=== PATIENT | female | born 1930 | race Caucasian/White ===

== ENCOUNTER 2016-08-28 04:16 | Inpatient (IN) | payer MEDICARE, MEDICAID ==
[~2016-08-28 04:16] MED LIST: ABILIFY2 M1 PO; AMITRIPTYLINE H10 MG PO; ASPIR 8181 MG PO; AUGMENTIN 500-1 EAC2 PO; BENADRYL ITCH28.3 G1 TP; BENGAY113 G1 TP; CELEBREX200 MG PO; CEPACOL SORE T1 EAC2 MM; COREG3.125 MG PO; CYCLOBENZAPRINE10 M1 PO; CYMBALTA60 MG PO; DULCOLAX10 MG RC; DULCOLAX10 MG/SUPP PR; DUONEB 2.5-0.5MG3 M1 AERO NEB; DURAGESIC1 PATCH . TOP; DURAGESIC1 PATCH .7 TOP; DYAZIDE 37.5/251 CAP PO; ECONAZOLE NITRA15 GM TP; FENTANYL1 EAC3 TD; FEOSOL325 MG PO; FLEET ENEMA PR; GUAIFENESIN SYRU5 ML PO; HYDROCODON-ACE1 EA16 PO; IPRAT-ALBUT 0.5-3 ML INH; KAYEXALATE15 GM/601 PO; LASIX20 MG PO; LEVAQUIN500 MG PO; LEVOTHYROXINE100 MCG PO; LIDODERM1 EACH TP; LIDODERM30 EA TP; LIPITOR40 M1 PO; LIPITOR40 MG PO; LISINOPRIL2.5 MG PO; MICROZIDE12.5 M1 PO; MILK OF MAGNESIA PO; MIRALAX17 G1 PO; MYCOSTATIN100 K U/ML PO; NEURONTIN300 MG PO; NITROSTAT0.4 MG SL; NORCO 5/325 TAB1 TAB PO; NORCO 7.5-3251 EACH PO; NORVASC2.5 M1 PO; NYSTATIN TOP; NYSTATIN10 GM PO; OCEAN104 ML; OXYBUTYNIN CHLOR5 M2 PO; OXYGEN; PREDNISONE10 M1 PO; PRILOSEC20 MG PO; REQUIP1 M1 PO; REQUIP1 MG PO; SENOKOT8.6 MG PO; TAMIFLU75 MG/CAP PO; TRIAMCINOLONE A15 G3 TP; TRIPLE ANTIBIOTIC TOP; TUMS300 M1 PO; TUSSIN DM CLEA118 M1 PO; TYLENOL325 M1 PO; ULTRAM50 M1 PO; ULTRAM50 MG PO; ZITHROMAX250 M1 PO; [UNRECOGNIZED DRUG - OTHER] PO; [UNRECOGNIZED DRUG - SUPPLY]
[2016-08-28] MEDS ORDERED: AMBIEN5 M1 PO (04:28)
[2016-08-28] MEDS ORDERED: ABILIFY2 M1 PO (04:28)
[2016-08-28] MEDS ORDERED: COREG3.125 M1 PO (04:29)
[2016-08-28] MEDS ORDERED: CYMBALTA60 M1 PO (04:29)
[2016-08-28] MEDS ORDERED: DULCOLAX10 MG PR (04:30)
[2016-08-28] MEDS ORDERED: IPRAT-ALBUT 0.5-3 ML AERO NEB (04:32)
[2016-08-28] MEDS ORDERED: DURAGESIC1 EAC2 TOP (04:32)
[2016-08-28] MEDS ORDERED: FEOSOL325 M1 PO (04:33)
[2016-08-28] MEDS ORDERED: FLEET ENEMA133 ML PR (04:33)
[2016-08-28] MEDS ORDERED: COUGH SYRU100 MG/51 PO (04:35)
[2016-08-28] MEDS ORDERED: HYDROCHLOROTH12.5 M2 PO (04:36)
[2016-08-28] MEDS ORDERED: COUGHTAB200 M1 PO (04:36)
[2016-08-28] MEDS ORDERED: MELATONIN3 M4 PO (04:37)
[2016-08-28] MEDS ORDERED: LYRICA50 MG/CAP PO (04:37)
[2016-08-28] MEDS ORDERED: LIPITOR40 M1 PO (04:37)
[2016-08-28] MEDS ORDERED: MILK OF MAGNESIA PO (04:38)
[2016-08-28] MEDS ORDERED: NITROSTAT0.4 M1 PO (04:38)
[2016-08-28] MEDS ORDERED: NORCO 7.5-3251 EACH PO (04:39)
[2016-08-28] MEDS ORDERED: NORVASC2.5 M1 PO (04:40)
[2016-08-28] MEDS ORDERED: OMEPRAZOLE20 M4 PO (04:40)
[2016-08-28] MEDS ORDERED: ULTRAM50 M1 PO (04:41)
[2016-08-28] MEDS ORDERED: SYNTHROID100 MC1 PO (04:41)
[2016-08-28] MEDS ORDERED: SENOKOT8.6 M1 PO (04:41)
[2016-08-28] MEDS ORDERED: TYLENOL325 M2 PO (04:42)
[2016-08-28] MEDS ORDERED: HYDROCODON-ACE1 EA16 PO (04:52)
[2016-08-28 05:02] LABS: BASO % 0.3 % (0-2); EOS % 3.8 % (0-7); EOSINOPHIL ABSOLUTE COUNT 0.3 tho/cmm (0.0-0.7); HCT-HEMATOCRIT 39.6 % (34.0-49.0); HGB-HEMOGLOBIN 12.2 gm/dl (12.0-15.5); IMMATURE GRANULOCYTES ABSOLUTE 0.01 tho/cmm (0-0.03); IMMATURE GRANULOCYTES PERCENT 0.1 % (0-0.3); LYMPH % 17.1 % (20-45); LYMPH ABSOLUTE COUNT 1.2 tho/cmm (0.8-4.5); MCH (MEAN CORPUSCULAR HGB) 31.2 pg (28.0-32.0); MCHC MEAN CORPUSCULAR HGB CONC 30.8 % (32.0-36.0); MCV (MEAN CELL VOLUME) 101.3 fl (82.0-96.0); MEAN PLATELET VOLUME 9.4 cmc (9.4-12.4); MONO % 7.8 % (0-12); MONOCYTE ABSOLUTE COUNT 0.5 tho/cmm (0.0-1.2); NEUTROPHIL ABSOLUTE COUNT 4.9 tho/cmm (1.6-8.0); NEUTROPHIL-AUTOMATED 4.9 tho/cmm (1.6-8.0); NEUTROPHILS % 70.9 % (40-80); PLATELET COUNT 181 tho/cmm (150-450); RED BLOOD COUNT 3.91 mil/cmm (4.00-5.20); RED CELL DISTRIBUTION WIDTH 12.3 % (12.4-16.4); WHITE BLOOD COUNT 6.9 tho/cmm (4.0-10.0)
[2016-08-28 05:11] LABS: ABG CO2 ARTERIAL 33 mmol/L (21-27); ARTERIAL BLD GAS O2 SATURATION 95 % (95-98); ARTERIAL BLOOD GAS PCO2 63 mmHg (32-45); ARTERIAL PO2 79 mmHg (70-100); BICARBONATE 31 mmol/L (21-28); BLOOD GAS BASE EXCESS 4 mM/L (-/+3); PH 7.31 Units (7.35-7.45)
[2016-08-28 05:16] LABS: ANION GAP 10 mmol/L (0-20); BLOOD UREA NITROGEN 19 mg/dl (6-24); CALCIUM 8.5 mg/dl (8.5-10.5); CARBON DIOXIDE-VENOUS 32 mmol/L (22-32); CHLORIDE 105 mmol/l (96-110); CREATININE 0.94 mg/dl (0.50-1.10); GLUCOSE 97 mg/dL (70-110); POTASSIUM 3.7 mmol/L (3.7-5.1); SODIUM 143 mmol/L (135-145); eGFR VALUE FOR BLACK 64 mL/Min
[2016-08-28] MEDS ORDERED: VOLTAREN100 G1 TP (10:57)
[2016-08-28] MEDS ORDERED: [UNRECOGNIZED DRUG - SUPPLY] TP (10:57)
[2016-08-28 15:42] LABS: ABG CO2 ARTERIAL 33 mmol/L (21-27); ARTERIAL BLD GAS O2 SATURATION 94 % (95-98); ARTERIAL BLOOD GAS PCO2 56 mmHg (32-45); ARTERIAL PO2 71 mmHg (70-100); BICARBONATE 31 mmol/L (21-28); BLOOD GAS BASE EXCESS 5 mM/L (-/+3); PH 7.37 Units (7.35-7.45)
[2016-08-28 17:50] LABS: URINE BILIRUBIN NEGATIVE (NEG); URINE BLOOD MODERATE (NEG); URINE GLUCOSE (UA) NEGATIVE (NEG); URINE KETONE NEGATIVE (NEG); URINE LEUKOCYTE ESTERASE NEGATIVE (NEG); URINE NITRITE NEGATIVE (NEG); URINE PH 6.5 (5.0-8.0); URINE PROTEIN SMALL (NEG)
[2016-08-28 17:53] LABS: URINE APPEARANCE CLEAR; URINE COLOR YELLOW
[2016-08-28 18:04] LABS: URINE EPITHELIAL CELLS 0 /[HPF] (0-10); URINE RBC 0-1 /[HPF] (0-5); URINE WBC 0 /[HPF] (0-5)
[2016-08-29 04:43] LABS: ABG CO2 ARTERIAL 30 mmol/L (21-27); ARTERIAL BLD GAS O2 SATURATION 95 % (95-98); ARTERIAL BLOOD GAS PCO2 47 mmHg (32-45); ARTERIAL PO2 74 mmHg (70-100); BICARBONATE 28 mmol/L (21-28); BLOOD GAS BASE EXCESS 3 mM/L (-/+3)
[2016-08-29 06:14] LABS: HCT-HEMATOCRIT 38.1 % (34.0-49.0); LYMPH % 11.1 % (20-45); LYMPH ABSOLUTE COUNT 0.7 tho/cmm (0.8-4.5); MCH (MEAN CORPUSCULAR HGB) 30.9 pg (28.0-32.0); MCHC MEAN CORPUSCULAR HGB CONC 31.5 % (32.0-36.0); MCV (MEAN CELL VOLUME) 98.2 fl (82.0-96.0); MEAN PLATELET VOLUME 9.4 cmc (9.4-12.4); MONO % 3.5 % (0-12); MONOCYTE ABSOLUTE COUNT 0.2 tho/cmm (0.0-1.2); NEUTROPHIL ABSOLUTE COUNT 5.4 tho/cmm (1.6-8.0); NEUTROPHIL-AUTOMATED 5.4 tho/cmm (1.6-8.0); NEUTROPHILS % 85.4 % (40-80); PLATELET COUNT 179 tho/cmm (150-450); RED BLOOD COUNT 3.88 mil/cmm (4.00-5.20); RED CELL DISTRIBUTION WIDTH 12.2 % (12.4-16.4); WHITE BLOOD COUNT 6.3 tho/cmm (4.0-10.0)
[2016-08-29 06:25] LABS: BLOOD UREA NITROGEN 17 mg/dl (6-24); CALCIUM 8.7 mg/dl (8.5-10.5); CARBON DIOXIDE-VENOUS 29 mmol/L (22-32); CHLORIDE 105 mmol/l (96-110); CREATININE 0.82 mg/dl (0.50-1.10); SODIUM 141 mmol/L (135-145); eGFR VALUE FOR BLACK 76 mL/Min
[2016-08-29 06:29] LABS: ANION GAP 11 mmol/L (0-20); GLUCOSE 149 mg/dL (70-110)
[2016-08-29 20:08] LABS: BLOOD UREA NITROGEN 16 mg/dl (6-24); CALCIUM 9.3 mg/dl (8.5-10.5); CARBON DIOXIDE-VENOUS 28 mmol/L (22-32); CHLORIDE 105 mmol/l (96-110); CREATININE 0.97 mg/dl (0.50-1.10); GLUCOSE 146 mg/dL (70-110); PHOSPHOROUS 2.4 mg/dl (2.5-4.9); SODIUM 142 mmol/L (135-145); eGFR VALUE FOR BLACK 62 mL/Min
[2016-08-29 20:09] LABS: ANION GAP 13 mmol/L (0-20); MAGNESIUM 1.4 mg/dl (1.8-2.6); POTASSIUM 3.8 mmol/L (3.7-5.1)
[2016-08-30 05:17] LABS: TSH-THYROID STIMULATING HORM. 1.63 uIU/ml (0.40-3.80)
[2016-09-01 04:47] LABS: EOS % 0.3 % (0-7); HCT-HEMATOCRIT 44.7 % (34.0-49.0); HGB-HEMOGLOBIN 14.5 gm/dl (12.0-15.5); IMMATURE GRANULOCYTES ABSOLUTE 0.06 tho/cmm (0-0.03); IMMATURE GRANULOCYTES PERCENT 0.5 % (0-0.3); LYMPH % 17.2 % (20-45); MCH (MEAN CORPUSCULAR HGB) 31.3 pg (28.0-32.0); MCHC MEAN CORPUSCULAR HGB CONC 32.4 % (32.0-36.0); MCV (MEAN CELL VOLUME) 96.3 fl (82.0-96.0); MEAN PLATELET VOLUME 9.3 cmc (9.4-12.4); MONO % 8.9 % (0-12); NEUTROPHIL ABSOLUTE COUNT 8.6 tho/cmm (1.6-8.0); NEUTROPHIL-AUTOMATED 8.6 tho/cmm (1.6-8.0); NEUTROPHILS % 73.1 % (40-80); PLATELET COUNT 224 tho/cmm (150-450); RED BLOOD COUNT 4.64 mil/cmm (4.00-5.20); RED CELL DISTRIBUTION WIDTH 12.2 % (12.4-16.4)
[2016-09-01 05:09] LABS: WHITE BLOOD COUNT 11.7 tho/cmm (4.0-10.0)
[2016-09-01 05:36] LABS: ANION GAP 13 mmol/L (0-20); BLOOD UREA NITROGEN 20 mg/dl (6-24); CALCIUM 8.7 mg/dl (8.5-10.5); CARBON DIOXIDE-VENOUS 31 mmol/L (22-32); CHLORIDE 99 mmol/l (96-110); GLUCOSE 86 mg/dL (70-110); SODIUM 140 mmol/L (135-145); eGFR VALUE FOR BLACK 59 mL/Min
== END 2016-09-01 13:10 | DRG 190 ==
LOC: EDMED 04:16 → EMR2 06:41 → CCU 07:33 → PCUA 08-29 16:45
PROVIDERS: Emergency Medicine; Family Medicine; Hospitalist; Nurse Practitioner Family; Registered Nurse; ADMIT Internal Medicine
DX: J44.1 Chronic obstructive pulmonary disease with (acute) exacerbation (principal); J96.21 Acute and chronic respiratory failure with hypoxia; G93.40 Encephalopathy, unspecified; J18.9 Pneumonia, unspecified organism; M06.9 Rheumatoid arthritis, unspecified; I48.91 Unspecified atrial fibrillation; R13.10 Dysphagia, unspecified; J96.22 Acute and chronic respiratory failure with hypercapnia; Z68.43 Body mass index [BMI] 50.0-59.9, adult; J98.11 Atelectasis; E66.01 Morbid (severe) obesity due to excess calories; E03.9 Hypothyroidism, unspecified; I10 Essential (primary) hypertension; Z66 Do not resuscitate; Z74.01 Bed confinement status; G89.4 Chronic pain syndrome; E78.5 Hyperlipidemia, unspecified; G25.81 Restless legs syndrome; R53.81 Other malaise; Z88.2 Allergy status to sulfonamides; Z90.49 Acquired absence of other specified parts of digestive tract; Z90.710 Acquired absence of both cervix and uterus; Z96.611 Presence of right artificial shoulder joint; J44.0 Chronic obstructive pulmonary disease with (acute) lower respiratory infection
CPT/HCPCS: G8996-GN-CK; G8997-GN-CK; J1650; J1956; J2930; J3475; J7030; J7512

== ENCOUNTER 2016-09-15 20:12 | Inpatient (IN) | payer MEDICARE, MEDICAID ==
[~2016-09-15 20:12] MED LIST changes: +AMBIEN5 M1 PO; +COREG3.125 M1 PO; +COUGH SYRU100 MG/51 PO; +COUGHTAB200 M1 PO; +CYMBALTA60 M1 PO; +DULCOLAX10 MG PR; +DURAGESIC1 EAC2 TOP; +FEOSOL325 M1 PO; +FLEET ENEMA133 ML PR; +HYDROCHLOROTH12.5 M2 PO; +IPRAT-ALBUT 0.5-3 ML AERO NEB; +LYRICA50 MG/CAP PO; +MELATONIN3 M4 PO; +NITROSTAT0.4 M1 PO; +OMEPRAZOLE20 M4 PO; +SENOKOT8.6 M1 PO; +SYNTHROID100 MC1 PO; +TYLENOL325 M2 PO; +VOLTAREN100 G1 TP; +[UNRECOGNIZED DRUG - SUPPLY] TP
[2016-09-15] MEDS ORDERED: LANOXIN125 MC3 PO (20:53)
[2016-09-15] MEDS ORDERED: BISOPROLOL FUMAR5 M1 PO (20:53)
[2016-09-15] MEDS ORDERED: ELIQUIS5 M1 PO (20:54)
[2016-09-15 21:11] LABS: BASO % 0.3 % (0-2); EOS % 2.9 % (0-7); EOSINOPHIL ABSOLUTE COUNT 0.2 tho/cmm (0.0-0.7); HCT-HEMATOCRIT 41.6 % (34.0-49.0); HGB-HEMOGLOBIN 13.2 gm/dl (12.0-15.5); IMMATURE GRANULOCYTES ABSOLUTE 0.02 tho/cmm (0-0.03); IMMATURE GRANULOCYTES PERCENT 0.3 % (0-0.3); LYMPH ABSOLUTE COUNT 1.4 tho/cmm (0.8-4.5); MCH (MEAN CORPUSCULAR HGB) 31.4 pg (28.0-32.0); MCHC MEAN CORPUSCULAR HGB CONC 31.7 % (32.0-36.0); MEAN PLATELET VOLUME 10.2 cmc (9.4-12.4); MONO % 9.5 % (0-12); MONOCYTE ABSOLUTE COUNT 0.7 tho/cmm (0.0-1.2); NEUTROPHIL ABSOLUTE COUNT 5.3 tho/cmm (1.6-8.0); NEUTROPHIL-AUTOMATED 5.3 tho/cmm (1.6-8.0); PLATELET COUNT 146 tho/cmm (150-450); RED CELL DISTRIBUTION WIDTH 12.7 % (12.4-16.4); WHITE BLOOD COUNT 7.6 tho/cmm (4.0-10.0)
[2016-09-15 21:25] LABS: ALB/GLOB RATIO 0.8 (0.8-2.0); ALBUMIN 2.8 g/dl (3.5-5.0); ALKALINE PHOSPHATASE 166 U/L (33-138); ALT/SGPT 45 U/L (12-78); ANION GAP 13 mmol/L (0-20); AST/SGOT 79 U/L (10-40); BILIRUBIN,TOTAL 0.8 mg/dl (0-1.5); BLOOD UREA NITROGEN 33 mg/dl (6-24); CALCIUM 8.5 mg/dl (8.5-10.5); CARBON DIOXIDE-VENOUS 28 mmol/L (22-32); CHLORIDE 105 mmol/l (96-110); CREATININE 1.12 mg/dl (0.50-1.10); GLUCOSE 77 mg/dL (70-110); POTASSIUM 3.9 mmol/L (3.7-5.1); SODIUM 142 mmol/L (135-145); eGFR VALUE FOR BLACK 52 mL/Min
[2016-09-15 21:58] LABS: URINE APPEARANCE HAZY; URINE BILIRUBIN SMALL (NEG); URINE BLOOD SMALL (NEG); URINE COLOR YELLOW; URINE GLUCOSE (UA) NEGATIVE (NEG); URINE KETONE SMALL (NEG); URINE LEUKOCYTE ESTERASE POSITIVE (NEG); URINE NITRITE NEGATIVE (NEG); URINE PROTEIN SMALL (NEG); URINE SPECIFIC GRAVITY 1.015 (1.003-1.030)
[2016-09-15 22:27] LABS: URINE EPITHELIAL CELLS RARE /[HPF] (0-10); URINE RBC RARE /[HPF] (0-5); URINE WBC 0-1 /[HPF] (0-5)
[2016-09-15 22:39] LABS: ABG CO2 ARTERIAL 29 mmol/L (21-27); ARTERIAL BLD GAS O2 SATURATION 98 % (95-98); ARTERIAL BLOOD GAS PCO2 57 mmHg (32-45); ARTERIAL PO2 130 mmHg (70-100); BICARBONATE 27 mmol/L (21-28); BLOOD GAS BASE EXCESS 0 mM/L (-/+3)
[2016-09-16 01:00] LABS: ABG CO2 ARTERIAL 29 mmol/L (21-27); ARTERIAL BLD GAS O2 SATURATION 97 % (95-98); ARTERIAL BLOOD GAS PCO2 55 mmHg (32-45); BICARBONATE 27 mmol/L (21-28); BLOOD GAS BASE EXCESS 0 mM/L (-/+3); PH 7.31 Units (7.35-7.45)
[2016-09-16 01:01] LABS: ARTERIAL PO2 92 mmHg (70-100)
[2016-09-16 04:36] LABS: ABG CO2 ARTERIAL 28 mmol/L (21-27); ARTERIAL BLD GAS O2 SATURATION 96 % (95-98); ARTERIAL BLOOD GAS PCO2 54 mmHg (32-45); ARTERIAL PO2 92 mmHg (70-100); BICARBONATE 26 mmol/L (21-28); BLOOD GAS BASE EXCESS -1 mM/L (-/+3)
[2016-09-16 05:22] LABS: BASO % 0.1 % (0-2); EOS % 1.9 % (0-7); EOSINOPHIL ABSOLUTE COUNT 0.2 tho/cmm (0.0-0.7); HCT-HEMATOCRIT 42.7 % (34.0-49.0); HGB-HEMOGLOBIN 13.5 gm/dl (12.0-15.5); IMMATURE GRANULOCYTES ABSOLUTE 0.03 tho/cmm (0-0.03); IMMATURE GRANULOCYTES PERCENT 0.3 % (0-0.3); LYMPH % 12.5 % (20-45); LYMPH ABSOLUTE COUNT 1.2 tho/cmm (0.8-4.5); MCH (MEAN CORPUSCULAR HGB) 31.3 pg (28.0-32.0); MCHC MEAN CORPUSCULAR HGB CONC 31.6 % (32.0-36.0); MCV (MEAN CELL VOLUME) 98.8 fl (82.0-96.0); MEAN PLATELET VOLUME 10.3 cmc (9.4-12.4); MONO % 7.8 % (0-12); MONOCYTE ABSOLUTE COUNT 0.7 tho/cmm (0.0-1.2); NEUTROPHIL ABSOLUTE COUNT 7.3 tho/cmm (1.6-8.0); NEUTROPHIL-AUTOMATED 7.3 tho/cmm (1.6-8.0); NEUTROPHILS % 77.4 % (40-80); PLATELET COUNT 155 tho/cmm (150-450); RED BLOOD COUNT 4.32 mil/cmm (4.00-5.20); RED CELL DISTRIBUTION WIDTH 12.7 % (12.4-16.4); WHITE BLOOD COUNT 9.4 tho/cmm (4.0-10.0)
[2016-09-16 05:33] LABS: ANION GAP 16 mmol/L (0-20); BLOOD UREA NITROGEN 33 mg/dl (6-24); C-REACTIVE PROTEIN 4.3 mg/dl (0-0.9); CALCIUM 8.6 mg/dl (8.5-10.5); CARBON DIOXIDE-VENOUS 27 mmol/L (22-32); CHLORIDE 105 mmol/l (96-110); CREATININE 0.98 mg/dl (0.50-1.10); GLUCOSE 82 mg/dL (70-110); POTASSIUM 3.9 mmol/L (3.7-5.1); SODIUM 144 mmol/L (135-145); eGFR VALUE FOR BLACK 61 mL/Min
[2016-09-17 04:27] LABS: ABG CO2 ARTERIAL 28 mmol/L (21-27); ARTERIAL BLD GAS O2 SATURATION 95 % (95-98); ARTERIAL BLOOD GAS PCO2 46 mmHg (32-45); BICARBONATE 27 mmol/L (21-28); BLOOD GAS BASE EXCESS 2 mM/L (-/+3)
[2016-09-17 04:28] LABS: ARTERIAL PO2 75 mmHg (70-100); PH 7.39 Units (7.35-7.45)
[2016-09-18 17:22] LABS: BASO % 0.1 % (0-2); EOS % 0.1 % (0-7); HCT-HEMATOCRIT 38.7 % (34.0-49.0); HGB-HEMOGLOBIN 12.4 gm/dl (12.0-15.5); IMMATURE GRANULOCYTES ABSOLUTE 0.02 tho/cmm (0-0.03); IMMATURE GRANULOCYTES PERCENT 0.2 % (0-0.3); LYMPH % 9.1 % (20-45); LYMPH ABSOLUTE COUNT 1.1 tho/cmm (0.8-4.5); MCH (MEAN CORPUSCULAR HGB) 30.9 pg (28.0-32.0); MCV (MEAN CELL VOLUME) 96.5 fl (82.0-96.0); MEAN PLATELET VOLUME 9.8 cmc (9.4-12.4); MONO % 7.6 % (0-12); MONOCYTE ABSOLUTE COUNT 0.9 tho/cmm (0.0-1.2); NEUTROPHIL ABSOLUTE COUNT 10.2 tho/cmm (1.6-8.0); NEUTROPHIL-AUTOMATED 10.2 tho/cmm (1.6-8.0); NEUTROPHILS % 82.9 % (40-80); PLATELET COUNT 143 tho/cmm (150-450); RED BLOOD COUNT 4.01 mil/cmm (4.00-5.20); RED CELL DISTRIBUTION WIDTH 12.5 % (12.4-16.4); WHITE BLOOD COUNT 12.3 tho/cmm (4.0-10.0)
[2016-09-18 17:35] LABS: ANION GAP 12 mmol/L (0-20); BLOOD UREA NITROGEN 16 mg/dl (6-24); CALCIUM 7.7 mg/dl (8.5-10.5); CARBON DIOXIDE-VENOUS 30 mmol/L (22-32); CHLORIDE 105 mmol/l (96-110); CREATININE 0.72 mg/dl (0.50-1.10); GLUCOSE 113 mg/dL (70-110); POTASSIUM 3.4 mmol/L (3.7-5.1); SODIUM 144 mmol/L (135-145); eGFR VALUE FOR BLACK 89 mL/Min
[2016-09-18 18:00] LABS: PROCALCITONIN 0.07 ng/ml (0.05-0.09)
[2016-09-18 18:35] LABS: URINE BILIRUBIN NEGATIVE (NEG); URINE BLOOD LARGE (NEG); URINE GLUCOSE (UA) NEGATIVE (NEG); URINE KETONE SMALL (NEG); URINE LEUKOCYTE ESTERASE POSITIVE (NEG); URINE NITRITE NEGATIVE (NEG); URINE PROTEIN MODERATE (NEG)
[2016-09-18 18:36] LABS: URINE APPEARANCE CLOUDY; URINE COLOR DARK YELLOW
[2016-09-18 18:45] LABS: URINE AMORPHOUS 1+; URINE BACTERIA 2+; URINE EPITHELIAL CELLS RARE /[HPF] (0-10); URINE WBC 15-20 /[HPF] (0-5)
[2016-09-19 05:02] LABS: ANION GAP 11 mmol/L (0-20); BLOOD UREA NITROGEN 19 mg/dl (6-24); CALCIUM 7.4 mg/dl (8.5-10.5); CARBON DIOXIDE-VENOUS 30 mmol/L (22-32); CHLORIDE 103 mmol/l (96-110); CREATININE 0.86 mg/dl (0.50-1.10); GLUCOSE 88 mg/dL (70-110); POTASSIUM 3.1 mmol/L (3.7-5.1); SODIUM 141 mmol/L (135-145); eGFR VALUE FOR BLACK 71 mL/Min
[2016-09-19 05:10] LABS: BASO % 0.1 % (0-2); EOS % 0.7 % (0-7); EOSINOPHIL ABSOLUTE COUNT 0.1 tho/cmm (0.0-0.7); HCT-HEMATOCRIT 34.7 % (34.0-49.0); IMMATURE GRANULOCYTES ABSOLUTE 0.03 tho/cmm (0-0.03); IMMATURE GRANULOCYTES PERCENT 0.3 % (0-0.3); LYMPH % 12.5 % (20-45); LYMPH ABSOLUTE COUNT 1.1 tho/cmm (0.8-4.5); MCH (MEAN CORPUSCULAR HGB) 30.8 pg (28.0-32.0); MCHC MEAN CORPUSCULAR HGB CONC 31.7 % (32.0-36.0); MCV (MEAN CELL VOLUME) 97.2 fl (82.0-96.0); MONO % 8.8 % (0-12); MONOCYTE ABSOLUTE COUNT 0.8 tho/cmm (0.0-1.2); NEUTROPHIL ABSOLUTE COUNT 7.1 tho/cmm (1.6-8.0); NEUTROPHIL-AUTOMATED 7.1 tho/cmm (1.6-8.0); NEUTROPHILS % 77.6 % (40-80); PLATELET COUNT 126 tho/cmm (150-450); RED BLOOD COUNT 3.57 mil/cmm (4.00-5.20); RED CELL DISTRIBUTION WIDTH 12.8 % (12.4-16.4); WHITE BLOOD COUNT 9.1 tho/cmm (4.0-10.0)
[2016-09-20 02:30] LABS: ANION GAP 12 mmol/L (0-20); BLOOD UREA NITROGEN 19 mg/dl (6-24); CALCIUM 7.1 mg/dl (8.5-10.5); CARBON DIOXIDE-VENOUS 29 mmol/L (22-32); CHLORIDE 107 mmol/l (96-110); CREATININE 0.83 mg/dl (0.50-1.10); GLUCOSE 83 mg/dL (70-110); POTASSIUM 3.9 mmol/L (3.7-5.1); SODIUM 144 mmol/L (135-145); eGFR VALUE FOR BLACK 75 mL/Min
[2016-09-21 03:50] LABS: PLATELET COUNT 184 tho/cmm (150-450)
[2016-09-21] MEDS ORDERED: ELIQUIS5 M1 (10:18)
[2016-09-21] MEDS ORDERED: LIPITOR40 M1 PO (17:12)
[2016-09-21] MEDS ORDERED: NITROSTAT0.4 M1 SL (17:12)
[2016-09-21] MEDS ORDERED: DURAGESIC1 EAC3 TOP (17:14)
[2016-09-21] MEDS ORDERED: HYDROCODON-ACE1 EA16 PO (17:15)
[2016-09-21] MEDS ORDERED: DELTASONE20 MG PO (18:18)
== END 2016-09-21 15:45 | DRG 189 ==
LOC: EDMED 20:12 → EMR2 09-16 00:12 → CCU 09-16 01:10 → PCUA 09-16 17:42
PROVIDERS: Emergency Medicine; Family Medicine; Internal Medicine Pulmonary Disease; Physician Assistant Medical; Registered Nurse; ADMIT Hospitalist
PROC: 5A09357 Assistance with Respiratory Ventilation, Less than 24 Consecutive Hours, Continuous Positive Airway Pressure (ICD-10-PCS; principal; 2016-09-16)
PROC: 02HV33Z Insertion of Infusion Device into Superior Vena Cava, Percutaneous Approach (ICD-10-PCS; 2016-09-16)
PROC: 02HV33Z Insertion of Infusion Device into Superior Vena Cava, Percutaneous Approach (ICD-10-PCS; 2016-09-17)
DX: J96.22 Acute and chronic respiratory failure with hypercapnia (principal); I48.2 Chronic atrial fibrillation; E66.2 Morbid (severe) obesity with alveolar hypoventilation; R00.1 Bradycardia, unspecified; N39.0 Urinary tract infection, site not specified; G25.81 Restless legs syndrome; I10 Essential (primary) hypertension; Z68.41 Body mass index [BMI] 40.0-44.9, adult; J96.21 Acute and chronic respiratory failure with hypoxia; Z79.01 Long term (current) use of anticoagulants; M06.9 Rheumatoid arthritis, unspecified; G89.4 Chronic pain syndrome; Z79.891 Long term (current) use of opiate analgesic; B96.4 Proteus (mirabilis) (morganii) as the cause of diseases classified elsewhere; Z91.19 Patient's noncompliance with other medical treatment and regimen; J44.9 Chronic obstructive pulmonary disease, unspecified; E03.9 Hypothyroidism, unspecified; E78.5 Hyperlipidemia, unspecified; K21.9 Gastro-esophageal reflux disease without esophagitis; Z88.2 Allergy status to sulfonamides; Z66 Do not resuscitate; R79.89 Other specified abnormal findings of blood chemistry; F32.9 Major depressive disorder, single episode, unspecified; T46.0X5A Adverse effect of cardiac-stimulant glycosides and drugs of similar action, initial encounter; R41.0 Disorientation, unspecified; T40.605A Adverse effect of unspecified narcotics, initial encounter
CPT/HCPCS: C1751; C1769; J0461; J0696; J1265; J7030; J7050; J7512; P9612; Q9967

== ENCOUNTER 2016-10-01 23:06 | Inpatient (IN) | payer MEDICARE, MEDICAID ==
[~2016-10-01 23:06] MED LIST changes: +BISOPROLOL FUMAR5 M1 PO; +DELTASONE20 MG PO; +DURAGESIC1 EAC3 TOP; +ELIQUIS5 M1; +ELIQUIS5 M1 PO; +LANOXIN125 MC3 PO; +NITROSTAT0.4 M1 SL
[2016-10-01 23:59] LABS: ABG CO2 ARTERIAL 30 mmol/L (21-27); ARTERIAL BLD GAS O2 SATURATION 96 % (95-98); ARTERIAL BLOOD GAS PCO2 51 mmHg (32-45); ARTERIAL PO2 83 mmHg (70-100); BICARBONATE 29 mmol/L (21-28); BLOOD GAS BASE EXCESS 3 mM/L (-/+3); PH 7.37 Units (7.35-7.45)
[2016-10-02] MEDS ORDERED: METOPROLOL TART25 M1 PO (00:19)
[2016-10-02] MEDS ORDERED: ZINC OXIDE30 G1 TOP (00:19)
[2016-10-02 00:49] LABS: BASO % 0.4 % (0-2); EOS % 1.1 % (0-7); EOSINOPHIL ABSOLUTE COUNT 0.1 tho/cmm (0.0-0.7); HCT-HEMATOCRIT 36.2 % (34.0-49.0); HGB-HEMOGLOBIN 11.2 gm/dl (12.0-15.5); IMMATURE GRANULOCYTES PERCENT 1.2 % (0-0.3); LYMPH ABSOLUTE COUNT 1.2 tho/cmm (0.8-4.5); MCH (MEAN CORPUSCULAR HGB) 30.8 pg (28.0-32.0); MCHC MEAN CORPUSCULAR HGB CONC 30.9 % (32.0-36.0); MCV (MEAN CELL VOLUME) 99.5 fl (82.0-96.0); MEAN PLATELET VOLUME 9.3 cmc (9.4-12.4); MONO % 12.1 % (0-12); NEUTROPHIL ABSOLUTE COUNT 5.8 tho/cmm (1.6-8.0); NEUTROPHIL-AUTOMATED 5.8 tho/cmm (1.6-8.0); NEUTROPHILS % 71.2 % (40-80); PLATELET COUNT 261 tho/cmm (150-450); RED BLOOD COUNT 3.64 mil/cmm (4.00-5.20); RED CELL DISTRIBUTION WIDTH 13.1 % (12.4-16.4); WHITE BLOOD COUNT 8.2 tho/cmm (4.0-10.0)
[2016-10-02 00:52] LABS: URINE BILIRUBIN SMALL (NEG); URINE BLOOD SMALL (NEG); URINE GLUCOSE (UA) NEGATIVE (NEG); URINE KETONE NEGATIVE (NEG); URINE LEUKOCYTE ESTERASE POSITIVE (NEG); URINE NITRITE NEGATIVE (NEG); URINE PROTEIN SMALL (NEG)
[2016-10-02 00:52] LABS: INR 1.7 INR (0.9-1.1); PROTHROMBIN TIME 20.3 SECONDS (9.0-13.6)
[2016-10-02 00:59] LABS: URINE APPEARANCE HAZY; URINE COLOR YELLOW
[2016-10-02 01:00] LABS: URINE BACTERIA 2+; URINE EPITHELIAL CELLS 0 /[HPF] (0-10); URINE RBC RARE /[HPF] (0-5)
[2016-10-02 01:10] LABS: ALB/GLOB RATIO 0.7 (0.8-2.0); ALBUMIN 2.6 g/dl (3.5-5.0); ALKALINE PHOSPHATASE 95 U/L (33-138); ALT/SGPT 13 U/L (12-78); ANION GAP 13 mmol/L (0-20); AST/SGOT 22 U/L (10-40); BILIRUBIN,TOTAL 0.5 mg/dl (0-1.5); BLOOD UREA NITROGEN 12 mg/dl (6-24); CALCIUM 6.7 mg/dl (8.5-10.5); CARBON DIOXIDE-VENOUS 28 mmol/L (22-32); CHLORIDE 105 mmol/l (96-110); CREATININE 0.84 mg/dl (0.50-1.10); GLUCOSE 91 mg/dL (70-110); MAGNESIUM 0.8 mg/dl (1.8-2.6); SODIUM 142 mmol/L (135-145); eGFR VALUE FOR BLACK 73 mL/Min
[2016-10-02 01:15] LABS: TSH-THYROID STIMULATING HORM. 7.08 uIU/ml (0.40-3.80)
[2016-10-02 01:35] LABS: PROCALCITONIN 0.06 ng/ml (0.05-0.09)
[2016-10-02 04:51] LABS: ABG CO2 ARTERIAL 30 mmol/L (21-27); ARTERIAL BLD GAS O2 SATURATION 98 % (95-98); ARTERIAL BLOOD GAS PCO2 51 mmHg (32-45); ARTERIAL PO2 104 mmHg (70-100); BICARBONATE 29 mmol/L (21-28); BLOOD GAS BASE EXCESS 3 mM/L (-/+3); PH 7.36 Units (7.35-7.45)
[2016-10-03 04:47] LABS: ABG CO2 ARTERIAL 30 mmol/L (21-27); ARTERIAL BLD GAS O2 SATURATION 97 % (95-98); ARTERIAL BLOOD GAS PCO2 49 mmHg (32-45); BICARBONATE 29 mmol/L (21-28); BLOOD GAS BASE EXCESS 3 mM/L (-/+3); PH 7.38 Units (7.35-7.45)
[2016-10-03 04:48] LABS: ARTERIAL PO2 86 mmHg (70-100)
[2016-10-03 06:33] LABS: BASO % 0.3 % (0-2); EOS % 1.3 % (0-7); EOSINOPHIL ABSOLUTE COUNT 0.1 tho/cmm (0.0-0.7); HCT-HEMATOCRIT 33.5 % (34.0-49.0); HGB-HEMOGLOBIN 10.2 gm/dl (12.0-15.5); IMMATURE GRANULOCYTES ABSOLUTE 0.05 tho/cmm (0-0.03); IMMATURE GRANULOCYTES PERCENT 0.7 % (0-0.3); LYMPH % 11.1 % (20-45); LYMPH ABSOLUTE COUNT 0.8 tho/cmm (0.8-4.5); MCH (MEAN CORPUSCULAR HGB) 30.4 pg (28.0-32.0); MCHC MEAN CORPUSCULAR HGB CONC 30.4 % (32.0-36.0); MCV (MEAN CELL VOLUME) 99.7 fl (82.0-96.0); MEAN PLATELET VOLUME 9.3 cmc (9.4-12.4); MONO % 13.7 % (0-12); NEUTROPHIL ABSOLUTE COUNT 5.1 tho/cmm (1.6-8.0); NEUTROPHIL-AUTOMATED 5.1 tho/cmm (1.6-8.0); NEUTROPHILS % 72.9 % (40-80); PLATELET COUNT 196 tho/cmm (150-450); RED BLOOD COUNT 3.36 mil/cmm (4.00-5.20); RED CELL DISTRIBUTION WIDTH 13.1 % (12.4-16.4)
[2016-10-03 07:17] LABS: ANION GAP 13 mmol/L (0-20); BLOOD UREA NITROGEN 10 mg/dl (6-24); C-REACTIVE PROTEIN 7.9 mg/dl (0-0.9); CARBON DIOXIDE-VENOUS 28 mmol/L (22-32); CHLORIDE 105 mmol/l (96-110); CREATININE 0.77 mg/dl (0.50-1.10); GLUCOSE 78 mg/dL (70-110); MAGNESIUM 1.2 mg/dl (1.8-2.6); POTASSIUM 3.9 mmol/L (3.7-5.1); SODIUM 142 mmol/L (135-145); eGFR VALUE FOR BLACK 82 mL/Min
[2016-10-04 05:18] LABS: BASO % 0.3 % (0-2); EOS % 1.2 % (0-7); EOSINOPHIL ABSOLUTE COUNT 0.1 tho/cmm (0.0-0.7); HCT-HEMATOCRIT 31.4 % (34.0-49.0); HGB-HEMOGLOBIN 9.6 gm/dl (12.0-15.5); IMMATURE GRANULOCYTES ABSOLUTE 0.07 tho/cmm (0-0.03); LYMPH % 13.7 % (20-45); MCH (MEAN CORPUSCULAR HGB) 30.2 pg (28.0-32.0); MCHC MEAN CORPUSCULAR HGB CONC 30.6 % (32.0-36.0); MCV (MEAN CELL VOLUME) 98.7 fl (82.0-96.0); MEAN PLATELET VOLUME 9.3 cmc (9.4-12.4); MONO % 12.5 % (0-12); MONOCYTE ABSOLUTE COUNT 0.9 tho/cmm (0.0-1.2); NEUTROPHIL ABSOLUTE COUNT 5.2 tho/cmm (1.6-8.0); NEUTROPHIL-AUTOMATED 5.2 tho/cmm (1.6-8.0); NEUTROPHILS % 71.3 % (40-80); PLATELET COUNT 182 tho/cmm (150-450); RED BLOOD COUNT 3.18 mil/cmm (4.00-5.20); WHITE BLOOD COUNT 7.3 tho/cmm (4.0-10.0)
[2016-10-04 05:33] LABS: ALB/GLOB RATIO 0.6 (0.8-2.0); ALKALINE PHOSPHATASE 73 U/L (33-138); ALT/SGPT 10 U/L (12-78); ANION GAP 11 mmol/L (0-20); AST/SGOT 17 U/L (10-40); BILIRUBIN,TOTAL 0.8 mg/dl (0-1.5); BLOOD UREA NITROGEN 9 mg/dl (6-24); CALCIUM 6.9 mg/dl (8.5-10.5); CARBON DIOXIDE-VENOUS 29 mmol/L (22-32); CHLORIDE 103 mmol/l (96-110); CREATININE 0.73 mg/dl (0.50-1.10); GLUCOSE 94 mg/dL (70-110); POTASSIUM 3.2 mmol/L (3.7-5.1); SODIUM 140 mmol/L (135-145); eGFR VALUE FOR BLACK 87 mL/Min
[2016-10-05 06:08] LABS: ANION GAP 12 mmol/L (0-20); BLOOD UREA NITROGEN 7 mg/dl (6-24); CALCIUM 6.9 mg/dl (8.5-10.5); CARBON DIOXIDE-VENOUS 27 mmol/L (22-32); CHLORIDE 106 mmol/l (96-110); CREATININE 0.58 mg/dl (0.50-1.10); GLUCOSE 83 mg/dL (70-110); SODIUM 141 mmol/L (135-145); eGFR VALUE FOR BLACK >90 mL/Min
[2016-10-05 06:19] LABS: POTASSIUM 4.4 mmol/L (3.7-5.1)
== END 2016-10-05 14:30 | DRG 189 ==
LOC: EDMED 23:06 → EMR2 10-02 02:52 → PCUA 10-02 05:06
PROVIDERS: Emergency Medicine; Internal Medicine; Registered Nurse; ADMIT Hospitalist
PROC: 5A09357 Assistance with Respiratory Ventilation, Less than 24 Consecutive Hours, Continuous Positive Airway Pressure (ICD-10-PCS; principal; 2016-10-02)
DX: J96.02 Acute respiratory failure with hypercapnia (principal); J18.9 Pneumonia, unspecified organism; G93.40 Encephalopathy, unspecified; J44.0 Chronic obstructive pulmonary disease with (acute) lower respiratory infection; Z99.81 Dependence on supplemental oxygen; I48.91 Unspecified atrial fibrillation; R13.10 Dysphagia, unspecified; N39.0 Urinary tract infection, site not specified; E66.2 Morbid (severe) obesity with alveolar hypoventilation; Z68.41 Body mass index [BMI] 40.0-44.9, adult; D64.9 Anemia, unspecified; J96.21 Acute and chronic respiratory failure with hypoxia; I10 Essential (primary) hypertension; G25.81 Restless legs syndrome; E83.42 Hypomagnesemia; G89.29 Other chronic pain; G47.33 Obstructive sleep apnea (adult) (pediatric); Z79.01 Long term (current) use of anticoagulants; I25.10 Atherosclerotic heart disease of native coronary artery without angina pectoris; M06.9 Rheumatoid arthritis, unspecified; Z66 Do not resuscitate; Z91.19 Patient's noncompliance with other medical treatment and regimen; Z51.5 Encounter for palliative care; E03.9 Hypothyroidism, unspecified; E78.5 Hyperlipidemia, unspecified; K21.9 Gastro-esophageal reflux disease without esophagitis; F32.9 Major depressive disorder, single episode, unspecified; Z79.891 Long term (current) use of opiate analgesic
CPT/HCPCS: G8996-GN-CJ; G8997-GN-CI; J2405; J2543; J3370; J3475; J7030; J7050; P9612